=== PATIENT | female | born 1940 | race Hispanic/Latino ===

== ENCOUNTER → 2018-09-25 | Outpatient (CLI) | payer MEDICARE | END | disposition home or self-care (01) | LOC: RAH 09:40 | PROVIDERS: ATTEND Family Medicine | DX: Z01.818 Encounter for other preprocedural examination (principal); I10 Essential (primary) hypertension | CPT/HCPCS: 71046 ==

== ENCOUNTER 2018-11-06 05:30 | Day surgery (SDC) | payer MEDICARE ==
[2018-11-05 11:28] VITALS: BP 148/64
[2018-11-05 11:30] LABS: BASOPHILS % (AUTO) 0.7 % (0.0-5.0); HEMATOCRIT 38.9 % (36-48); LYMPHOCYTES % (AUTO) 16.7 % (21.0-51.0); MEAN CORPUSCULAR HEMOGLOBIN 29.5 pg (27.0-33.0); MEAN CORPUSCULAR HGB CONC 32.4 g/dL (32.0-36.0); MEAN CORPUSCULAR VOLUME 91.2 fL (79-99); MONOCYTES % (AUTO) 6.9 % (3.0-13.0); NEUTROPHILS % (AUTO) 75.7 % (40.0-77.0); PLATELET COUNT (AUTO) 258 K/uL (130-400); RED BLOOD CELL COUNT(AUTO) 4.27 MIL/uL (4.00-5.50); RED CELL DISTRIBUTION WIDTH 15.3 % (11.0-15.5)
[2018-11-05 11:46] LABS: CREATININE 1.4 mg/dL (0.5-1.5); POTASSIUM 4.6 mmol/L (3.5-5.1)
--- NOTE | 2018-11-05 15:36 | NUR ---
ABNORMAL LABS CALLED DR. RODRIGUEZ'S OFFICE, SPOKE TO DNAIELLE, REPORTED PT'S WBC 11.0, BUN 59, CREAT 1.4. WILL CALL BACK FOR ORDERS.
--- NOTE | 2018-11-05 16:00 | NUR ---
CALL BACK CALL BACK FROM DR. RODRIGUEZ'S OFFICE RE ABNORMAL LABS. NO FURTHER ORDERS FROM DR. RODRIGUEZ. OKAY TO PROCEED WITH PLANNED PROCEDURE.
[~2018-11-06] VITALS: Ht 142.2 cm; Wt 113.5 kg
[2018-11-06] VITALS (15 sets, daily range): BP systolic 109–139; BP diastolic 50–79
[~2018-11-06 05:30] MED LIST: ALLO300T2 PO; FURO40TA5 PO; HYDR-4060 PO; HYDR100T27 PO; ICOS1CAP PO; INSU10VI3 SQ; LACTATED RINGERS 1000ML 1,000 ML IV SCH; LEVO150T11 PO; LIOT5TAB8 PO; LIRA0.6P SQ; LISI40TA4 PO; LORA10TA7 PO; LOVA10TA2 PO; MAGN400T40 PO; METF-446 PO; METO5TAB7 PO; PANT40TA25 PO; POTA10CA44 PO
[2018-11-06] MEDS ORDERED: SODIUM CHLORIDE 0.9% 1000ML 1,000 ML IV ONE (05:48)
[2018-11-06] MEDS ORDERED: LIDOCAINE PF 2% 5ML ABBOJECT ONE (06:32)
[2018-11-06] MEDS ORDERED: PROPOFOL 10 MG/ML 20ML VIAL IV ONE (06:34)
[2018-11-06] MEDS ORDERED: GLYCOPYRROLATE 1 MG/5 ML SYRINGE ONE (06:34)
[2018-11-06] MEDS ORDERED: MIDAZOLAM HCL 1 MG/ML 2ML VIAL ONE (06:34)
[2018-11-06] MEDS ORDERED: ROCURONIUM 10MG/1ML SYR 10 MG/ML ML ONE (06:34)
[2018-11-06] MEDS ORDERED: ONDANSETRON HCL 4 MG/2 ML VIAL ONE (06:34)
[2018-11-06] MEDS ORDERED: FENTANYL CITRATE PF 50 MCG/1 ML 2ML VIAL ONE (06:35)
--- NOTE | 2018-11-06 08:15 | NUR ---
PATIENT RETURNED FROM PACU IN NO DISTRESS, PATIENT HAD BM IN STRETCHER. ELMO CARE DONE PATIENT STATES FEELING WELL SCANT VAGINAL BLEEDING.
--- NOTE | 2018-11-06 08:45 | NUR ---
PATIENT UP TO RESTROOM IN NO DISTRESS. SCANT VAGINAL BLEEDING STATES FEELING WELL.
--- NOTE | 2018-11-06 09:07 | NUR ---
PATIENT DISCHARGED IN NO DISTRESS VIA WHEELCHAIR.SCANT VAGINAL BLEEDING
== END 2018-11-06 09:07 | disposition home or self-care (01) ==
LOC: DAH 05:30
PROVIDERS: ATTEND Obstetrics & Gynecology
DX: N95.0 Postmenopausal bleeding (principal); E78.5 Hyperlipidemia, unspecified; I10 Essential (primary) hypertension; E11.9 Type 2 diabetes mellitus without complications; M06.9 Rheumatoid arthritis, unspecified; Z79.899 Other long term (current) drug therapy; Z68.43 Body mass index [BMI] 50.0-59.9, adult; Z98.890 Other specified postprocedural states; E66.01 Morbid (severe) obesity due to excess calories; M54.5 Low back pain; M10.9 Gout, unspecified; E07.9 Disorder of thyroid, unspecified
CPT/HCPCS: 36415; 58120; 80048; 82948 ×2; 85025; 86850; 86900; 86901; A4315; A4351; A4556; J2001; J2250; J2405; J2704; J3490; J7030; J7120; J3010

== ENCOUNTER → 2021-06-29 | Outpatient (CLI) | payer MEDICARE ==
[~2021-06-29] MED LIST changes: -LACTATED RINGERS 1000ML 1,000 ML IV SCH; +LIOT5TAB11 PO; -LIOT5TAB8 PO; -LISI40TA4 PO; +LISI40TA9 PO; -PANT40TA25 PO; +PANT40TA54 PO
== END | disposition home or self-care (01) ==
LOC: RAH 09:18
PROVIDERS: ATTEND Family Medicine
DX: I70.203 Unspecified atherosclerosis of native arteries of extremities, bilateral legs (principal)
CPT/HCPCS: 93925